=== PATIENT | male | born 1935 | race Hispanic/Latino ===

== ENCOUNTER 2016-10-30 06:43 | Day surgery (SDC) | payer MEDICARE ==
[2016-10-30] MEDS ORDERED: Lidocaine 1% Inj (20ml) ONE (07:19)
[2016-10-30] MEDS ORDERED: Bupivacaine 0.5% Inj(30mL) ONE (07:19)
[2016-10-30 07:24] VITALS: BMI 20.3
[2016-10-30 07:30] LABS: ADD MANUAL DIFF? NO
[2016-10-30 07:42] LABS: BASO # 0.03 K/mm3 (0.0-2.0); BASO % 0.4 % (0.0-3.0); EOS # 0.3 (0.0-0.7); EOS % 4.1 % (1.5-5.0); GRAN # 5.26 (1.4-6.5); GRAN % 64.8 % (50.0-68.0); HEMATOCRIT 41.3 % (42.0-52.0); LYMPH # 1.7 (1.2-3.4); LYMPH % 21.2 % (22.0-35.0); MEAN CELL VOLUME 98.1 fL (80.0-105.0); MEAN CORPUSCULAR HEMOGLOBIN 32.3 pg (25.0-35.0); MEAN CORPUSCULAR HGB CONC 32.9 g/dl (31.0-37.0); MEAN PLATELET VOLUME 9.1 fl (7.0-11.0); MONO # 0.8 (0.1-0.6); MONO % 9.5 % (1.0-6.0); PLATELET COUNT 275 10^3/uL (120.0-450.0); RED CELL DISTRIBUTION WIDTH 13.7 % (11.5-14.5); WHITE BLOOD COUNT 8.1 10^3/ul (4.5-11.0)
[2016-10-30 07:52] LABS: PARTIAL THROMBOPLASTIN TIME 28.7 Seconds (23.7-30.8)
[2016-10-30 08:02] LABS: BLOOD UREA NITROGEN 15 mg/dL (7-21); CALCIUM 9.4 mg/dL (8.4-10.5); CARBON DIOXIDE 30 mmol/L (21-33); CHLORIDE 101 mmol/L (98-107); GFR AFRICAN-AMERICAN > 60; GLUCOSE,RANDOM 109 mg/dL (70-110); POTASSIUM 4.8 mmol/L (3.6-5.0); SODIUM 142 mmol/L (132-148)
[2016-10-30 08:19] VITALS: O2SAT 99
--- NOTE | 2016-10-30 08:53 | PCM.SURG1 ---
Surgeon's Initial Post Op Note - Surgeon's Notes Surgeon: Dr. Sweeney Bank Teller Machine Mechanic: Dr. Deutsch PGY2, Dr. Murcia PGY1 Type of Anesthesia: Local Pre-Operative Diagnosis: Anterior Chest Mass Operative Findings: see operative report Post-Operative Diagnosis: same Operation Performed: Excision of anterior chest mass Specimen/Specimens Removed: Chest mass Estimated Blood Loss: EBL {In ML}: 5 Blood Products Given: N/A Drains Used: No Drains Post-Op Condition: Good Date of Surgery/Procedure: 10/30/16 Time of Surgery/Procedure: 08:53
[2016-10-30 08:59] VITALS: BP 184/58; PULSE 73; RESP 20; TEMP 97.9
--- NOTE | 2016-11-04 13:34 | OP ---
PROCEDURE DATE: 10/30/2016 PREOPERATIVE DIAGNOSIS: Left anterior chest wall skin lesion measuring 8 cm x 5 cm. POSTOPERATIVE DIAGNOSIS: Left anterior chest wall skin lesion measuring 8 cm x 5 cm. PROCEDURES PERFORMED: 1. Wide and deep excision of the left anterior chest wall lesion. 2. Advancement flap closure of the 5 cm x 8 cm wound. SURGEON: Dr. Sweeney MEDICAL PRACTICE ADMINISTRATOR: Dr. Deutsch ANESTHESIA: Local anesthesia. ESTIMATED BLOOD LOSS: Minimal. SPECIMEN: Anterior chest wall mass. The patient is an 80-year-old male with a history of a growth on the anterior chest wall on the left side associated with discomfort and pain and now increasing in size. This appears to represent a ski n cancer and the patient was brought in for excision. The patient was brought to the operating room, placed on the operating table in supine position. The patient was connected to EKG, blood pressure and pulse oximeter monitors. The patient then was anes thetized with local anesthetic and was prepped and draped in usual sterile fashion. First, standard timeout procedure too place and everybody in the room agreed as to the patient's iden tity, diagnosis and procedure to be performed. Using a #15 blade, an incision was made as previously marked wound lines, which were about a cm dista l to the margins of the tumor. This was carefully carried through subcutaneous fat, down to the fasc ia over the pectoralis muscle. Once this was done, I then carefully took the fascial layer together with the overlying skin and the underlying fascia in order to send the whole specimen. Once this was completed, the wound was copiously irrigated, all the bleeding points were cauterized and flaps were raised laterally for about 4-5 cm on each side. Once this was done and we were able to reapproximat e skin without any significant tension, I then proceeded with closure of the wound using 3-0 Vicryl f or the deep fat layer, 3-0 Vicryl for the deep dermal layer and 4-0 Monocryl for skin. A sterile Mickey mabond dressing was applied to the wound. There were also 3 mattress nylon stitches used in order to secure the skin in place. Brandon Sweeney MD cc: [id number] TT: 11/04/2016 13:34:21 en
== END 2016-10-30 09:50 | disposition home or self-care (01) ==
LOC: OPSURG 06:43
PROVIDERS: ATTEND General Practice
DX: C44.519 Basal cell carcinoma of skin of other part of trunk (principal)

== ENCOUNTER 2017-05-27 11:58 | Observation (INO) | payer MEDICARE ==
--- NOTE | 2017-05-27 12:28 | ED PDOC ---
Arrival/HPI - General Chief Complaint: Dizziness/Lightheaded Time Seen by Provider: 05/27/17 12:04 Historian: Patient, Spouse, Family (Son) - History of Present Illness Time/Duration: Prior to Arrival Symptom Onset: Sudden Symptom Course: Improving Severity Level: Moderate Activities at Onset: Rest Associated Symptoms (Text): 05/27/17 12:26 Patient states that he felt dizzy and lightheaded this morning and had a near syncopal episode. No chest pain or palpitations. Chronic dyspnea and no worse than usual. No headache. No nausea or vomiting. No fever. No trauma. He felt better after applying his home oxygen. He is on 3 L. Past Medical History - Infectious Disease Hx of Infectious Diseases: None - Tetanus Immunization Tetanus Immunization: Unknown - Cardiac Hx Pacemaker: No - Pulmonary Hx Chronic Obstructive Pulmonary Disease (COPD): Yes (home o2) Hx Emphysema: Yes - Neurological Hx Seizures: Yes - Hematological/Oncological Hx Blood Transfusions: No - Musculoskeletal/Rheumatological Hx Musculoskeletal Disorders: No - Genitourinary/Gynecological Hx Bladder Cancer: Yes - Psychiatric Hx Emotional Abuse: No Hx Physical Abuse: No Hx Substance Use: No (30+YRS AGO ETOH) - Past Surgical History Past Surgical History: Non-Contributing - Anesthesia Hx Anesthesia Reactions: No Hx Malignant Hyperthermia: No - Suicidal Assessment Feels Threatened In Home Enviroment: No Family/Social History - Physician Review Nursing Documentation Reviewed: Yes Family/Social History: Unknown Family HX Smoking Status: Former Smoker Hx Alcohol Use: No Hx Substance Use: No (30+YRS AGO ETOH) Hx Substance Use Treatment: No Allergies/Home Meds Allergies/Adverse Reactions: Allergies No Known Allergies Allergy (Verified 05/27/17 12:18) Home Medications: Home Meds Medication Instructions Recorded Confirmed Lovastatin 40 mg PO DAILY 10/30/16 05/27/17 Phenytoin, Extended [Dilantin 100 mg PO DAILY 10/30/16 05/27/17 [place]] Review of Systems - Physician Review All systems were reviewed & negative as marked: Yes - Review of Systems Constitutional: Fatigue. absent: Fevers Respiratory: SOB, Cough. absent: Wheezing Cardiovascular: absent: Chest Pain, Palpitations, Syncope Gastrointestinal: absent: Abdominal Pain, Nausea, Vomiting Genitourinary Male: absent: Dysuria, Hematuria Neurological: Dizziness. absent: Headache, Focal Weakness Physical Exam Vital Signs Temp Pulse Resp BP Pulse Ox 05/27/17 12:32 98.7 F 05/27/17 12:13 97.9 F 88 18 155/72 H 95 Temperature: Afebrile Blood Pressure: Hypertensive Pulse: Regular Respiratory Rate: Normal Appearance: Positive for: Well-Appearing, Non-Toxic, Comfortable, Other ( Chronically ill-appearing thin and pale) Pain Distress: None Mental Status: Positive for: Alert and Oriented X 3 - Systems Exam Head: Present: Atraumatic, Normocephalic Pupils: Present: PERRL Extroacular Muscles: Present: EOMI Conjunctiva: Present: Normal Mouth: Present: Moist Mucous Membranes Pharnyx: No: ERYTHEMA, EXUDATE, TONSILS ENLARGED Neck: Present: Normal Range of Motion Respiratory/Chest: Present: Decreased Breath Sounds, Rhonchi. No: Accessory Muscle Use, Wheezes, Rales, Retracting, Tachypneic, Tender to Palpation Cardiovascular: Present: Regular Rate and Rhythm, Normal S1, S2. No: Murmurs Abdomen: Present: Normal Bowel Sounds. No: Tenderness, Distention, Peritoneal Signs, Rebound, Guarding Upper Extremity: Present: Normal Inspection. No: Cyanosis, Edema Lower Extremity: Present: Normal Inspection. No: Edema Neurological: Present: GCS=15, CN II-XII Intact, Speech Normal, Motor Func Grossly Intact, Normal Cerebellar Funct Skin: Present: Warm, Dry, Pale. No: Rashes Psychiatric: Present: Alert, Oriented x 3, Normal Insight, Normal Concentration Medical Decision Making ED Course and Treatment: 05/27/17 12:34 EKG shows normal sinus rhythm rate approximately [address] or T-wave changes 05/27/17 13:43 Chest one view shows no infiltrate effusion or cardiomegaly - Lab Interpretations Lab Results: 05/27/17 12:10 05/27/17 12:10 Lab Results 05/27/17 12:26: POC Glucose (mg/dL) 134 H 05/27/17 12:10: Sodium 139, Potassium 4.2, Chloride 99, Carbon Dioxide 28, Anion Gap 16, BUN 18, Creatinine 0.8, Est GFR ( Amer) > 60, Est GFR (Non- Af Amer) > 60, Random Glucose 128 H, Calcium 9.2, Phosphorus 3.4, Magnesium 2.1 , Total Bilirubin 0.5, AST 29, ALT 29, Alkaline Phosphatase 61, Lactate Dehydrogenase 490, Total Creatine Kinase 97, Troponin I 0.02, Total Protein 7.8 , Albumin 4.3, Globulin 3.5, Albumin/Globulin Ratio 1.2 05/27/17 12:10: PT 12.2, INR 1.11 H, APTT 26.7 05/27/17 12:10: WBC 8.5, RBC 4.17, Hgb 13.3 L, Hct 41.3 L, MCV 99.0, MCH 31.9, MCHC 32.2, RDW 13.3, Plt Count 218, MPV 9.7, Gran % 70.7 H, Lymph % (Auto) 17.4 L, [place] % (Auto) 10.8 H, Eos % (Auto) 0.9 L, Baso % (Auto) 0.2, Gran # 5.98, Lymph # 1.5, [place] # 0.9 H, Eos # 0.1, Baso # 0.02 - RAD Interpretation Radiology Orders: 05/27/17 12:23 HEAD W/O CONTRAST [CT] Stat 05/27/17 12:24 CHEST PORTABLE [RAD] Stat CT scan of the head as read by the radiologist shows no acute findings Collections Associate: Radiologist Disposition/Present on Arrival - Present on Arrival Any Indicators Present on Arrival: No History of DVT/PE: No History of Uncontrolled Diabetes: No Urinary Catheter: No History of Decub. Ulcer: No History Surgical Site Infection Following: None - Disposition Have Diagnosis and Disposition been Completed?: Yes Diagnosis: Near syncope Disposition: HOSPITALIZED Disposition Time: 13:52 Patient Plan: Observation, Telemetry Condition: FAIR Referrals: Jared Landin MD [Primary Care Provider] - Follow up with primary Forms: [employer] (Croatian)
[2017-05-27 12:33] LABS: BASO # 0.02 K/mm3 (0.0-2.0); BASO % 0.2 % (0.0-3.0); EOS # 0.1 (0.0-0.7); EOS % 0.9 % (1.5-5.0); GRAN # 5.98 (1.4-6.5); GRAN % 70.7 % (50.0-68.0); HEMATOCRIT 41.3 % (42.0-52.0); LYMPH # 1.5 (1.2-3.4); LYMPH % 17.4 % (22.0-35.0); MEAN CORPUSCULAR HEMOGLOBIN 31.9 pg (25.0-35.0); MEAN CORPUSCULAR HGB CONC 32.2 g/dl (31.0-37.0); MEAN PLATELET VOLUME 9.7 fl (7.0-11.0); MONO # 0.9 (0.1-0.6); MONO % 10.8 % (1.0-6.0); RED CELL DISTRIBUTION WIDTH 13.3 % (11.5-14.5); WHITE BLOOD COUNT 8.5 10^3/ul (4.5-11.0)
[2017-05-27 12:40] LABS: ALB/GLOB RATIO 1.2 (1.1-1.8); ALKALINE PHOSPHATASE 61 U/L (38-126); ALT/SGPT 29 U/L (7-56); AST/SGOT 29 U/L (17-59); BILIRUBIN,TOTAL 0.5 mg/dL (0.2-1.3); BLOOD UREA NITROGEN 18 mg/dL (7-21); CALCIUM 9.2 mg/dL (8.4-10.5); CARBON DIOXIDE 28 mmol/L (21-33); CHLORIDE 99 mmol/L (98-107); GFR AFRICAN-AMERICAN > 60; GLUCOSE,RANDOM 128 mg/dL (70-110); MAGNESIUM 2.1 mg/dL (1.7-2.2); PHOSPHOROUS 3.4 mg/dL (2.5-4.5); POTASSIUM 4.2 mmol/L (3.6-5.0); SODIUM 139 mmol/L (132-148); TOTAL PROTEIN 7.8 g/dL (5.8-8.3)
[2017-05-27 12:49] LABS: INR 1.11 (0.93-1.08); PARTIAL THROMBOPLASTIN TIME 26.7 Seconds (25.1-36.5)
[2017-05-27 12:51] LABS: TROPONIN I 0.02 ng/mL
--- NOTE | 2017-05-27 13:17 | CT ---
PROCEDURE: CT HEAD WITHOUT CONTRAST. HISTORY: ams COMPARISON: None available. TECHNIQUE: Axial computed tomography images were obtained through the head/brain without intravenous contrast. Please note that the examination is limited by patient motion artifact, despite several attempts at repeat imaging through the posterior fossa. Radiation dose: Total exam DLP = 1307.83 mGy-cm. This CT exam was performed using one or more of the following dose reduction techniques: Automated exposure control, adjustment of the mA and/or kV according to patient size, and/or use of iterative reconstruction technique. FINDINGS: HEMORRHAGE: No intracranial hemorrhage. BRAIN: No mass effect or edema. Mild diffuse age-appropriate cerebral atrophy. 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 No evidence of acute infarct. Moderate periventricular white matter lucency consistent with age-related microvascular ischemic change. VENTRICLES: Unremarkable. No hydrocephalus. CALVARIUM: Unremarkable. PARANASAL SINUSES: Unremarkable as visualized. No significant inflammatory changes. MASTOID AIR CELLS: Unremarkable as visualized. No inflammatory changes. OTHER FINDINGS: None. IMPRESSION: No intracranial mass, hemorrhage or evidence of acute infarct. 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 Age-appropriate atrophy and microvascular white matter ischemic change. Examination limited by patient motion.
--- NOTE | 2017-05-27 13:20 | RAD ---
HISTORY: ams COMPARISON: 04/21/2014 FINDINGS: LUNGS: No active pulmonary disease. PLEURA: No significant pleural effusion identified, no pneumothorax apparent. CARDIOVASCULAR: Normal. OSSEOUS STRUCTURES: Old healed fracture of the right 5th posterior rib. Old healed fractures of the left posterior 6th and 7th ribs. VISUALIZED UPPER ABDOMEN: Normal. OTHER FINDINGS: None. IMPRESSION: No active disease.
[2017-05-27 14:11] LABS: URINE BILIRUBIN NEGATIVE (NEGATIVE); URINE BLOOD TRACE-INTACT (NEGATIVE); URINE GLUCOSE (UA) NEGATIVE (NEGATIVE); URINE KETONE NEGATIVE (NEGATIVE); URINE LEUKOCYTE ESTERASE NEGATIVE Leu/uL (NEGATIVE); URINE PROTEIN TRACE mg/dL (<30 mg/dL); URINE UROBILINOGEN 0.2 E.U./dL (<1 E.U./dL)
[2017-05-27 14:14] LABS: URINE APPEARANCE SL CLOUDY (CLEAR)
[2017-05-27 14:15] LABS: URINE COLOR YELLOW (YELLOW)
[2017-05-27 14:16] LABS: URINE RBC 0 - 2 /hpf (0-2); URINE WBC NEGATIVE /hpf (0-6)
[2017-05-27] MEDS: Albuterol-Ipratrop 3 mg / 0.5 (3 ml) UD IH PRN (15:51)
[2017-05-27 17:27] VITALS: BMI 19.0
[2017-05-27] MEDS ORDERED: Influenza Vaccine 60 mcg/0.5 mL SYR (4YR UP) IM ONE (17:27)
[2017-05-27] MEDS ORDERED: Pneumococcal 23-Valent Vaccine IM ONE (17:27)
--- NOTE | 2017-05-27 19:49 | CARD ---
APPROVED REPORT EKG Measurement Heart [id number] <Conclusion> Normal sinus rhythm Nonspecific ST and T wave abnormality Abnormal ECG
[2017-05-28] MEDS: Albuterol-Ipratrop 3 mg / 0.5 (3 ml) UD IH PRN ×4 (06:22→22:06)
--- NOTE | 2017-05-28 22:25 | US ---
PROCEDURE: Bilateral carotid artery duplex ultrasound HISTORY: Carotid stenosis syncope PHYSICIAN(S): Lance Dougherty MD. TECHNIQUE: Duplex sonography and color-flow Doppler were used to evaluate the carotid bifurcations and limited segments of the vertebral arteries bilaterally. FINDINGS: There is moderate to severe irregular calcified heterogeneous plaque noted at the carotid bifurcations bilaterally. The peak systolic velocity in the proximal right internal carotid artery is 160 cm/sec. This corresponds to a 60-79 percent proximal right ICA stenosis. Normal systolic velocities are noted in the proximal right external carotid artery. There is antegrade flow in the right vertebral artery. The peak systolic velocity in the proximal left internal carotid artery is 143 cm/sec. This corresponds to a 40-59 percent proximal left ICA stenosis. Normal systolic velocities are noted in the proximal left external carotid artery. There is antegrade flow in the left vertebral artery. IMPRESSION: 1. 60-79 percent proximal right ICA stenosis 2. 40- 59 percent proximal left ICA stenosis 3. Antegrade flow in both vertebral arteries.
--- NOTE | 2017-05-29 01:57 | CON ---
DATE: 05/28/2017 REQUESTING PHYSICIAN: Dr. Griffith REASON FOR CONSULTATION: Near syncope. HISTORY OF PRESENT ILLNESS: This is an 81-year-old man with severe COPD, admitted after near syncopal event at home. He states that he got up from a seated position to walk or cross the room and became severely short of breath. He felt extremely lightheaded and faint. He denied any loss of consciousness. He denied any chest pain. He is unaware of any palpitations. He called the emergency squad and sat down to rest. Upon arrival, he was feeling better, but his blood pressure was noted to be markedly elevated. He was advised admission. He had recurrent dyspnea and agreed to be transferred to the hospital. He is currently seen lying in bed on telemetry in the presence of his grandson. He is feeling significantly better. He again denies any chest pain. He is unaware of any palpitations. He has had no prior history of syncope. His past history is notable for the problems mentioned above. He does have severe COPD and uses home oxygen. He had a history of alcohol abuse in the past as well and reportedly has a history of seizures. He also has a history of hyperlipidemia and prior bladder cancer. ALLERGIES: NONE. MEDICATIONS: At home included lovastatin and Dilantin. SOCIAL HISTORY: As mentioned. He is retired. FAMILY HISTORY: Both parents are from age-related illness. REVIEW OF SYSTEMS: 10-point review of systems is notable mainly for problems as mentioned above.. PHYSICAL EXAMINATION GENERAL: He is a elderly man who appears comfortable at rest. VITAL SIGNS: His blood pressure is 120/50 with a pulse of 72 and sinus, respirations 16. He is afebrile. HEENT: Normocephalic, atraumatic. NECK: Supple. No JVD noted. CHEST: Bilateral scattered rhonchi. Diminished breath sounds noted bilaterally. HEART: PMI displaced laterally. Distant sounds noted. No pathologic murmurs or gallops were appreciable. ABDOMEN: Soft, nontender with normoactive bowel sounds. EXTREMITIES: No clubbing, cyanosis or edema. SKIN: Warm and dry. PSYCHIATRIC: Normal mood and affect. NEUROLOGIC: No gross motor or sensory is appreciable. Alert and oriented x3. DIAGNOSTIC DATA: White count is 8.5, hemoglobin and hematocrit 13.3 and 41.3 with platelet count of 218,000. PT/PTT normal. Potassium 4.2, BUN and creatinine 18 and 0.8, glucose is 134. Troponin is negative. CK is negative as well. Electrocardiogram reveals sinus rhythm with nonspecific ST-T abnormalities. Chest x-ray revealed an old prior rib fractures. Cardiac silhouette is normal with clear lung sauer. CT of the head showed evidence of old left frontal parietal infarct and age-related atrophy. IMPRESSION: 1. Near syncope in the setting of respiratory distress and accelerated hypertension, etiology uncertain, may represent vasovagal event. Obviously given his age, significant carotid or coronary disease can be present and conduction abnormalities also need to be entertained. 2. Severe chronic obstructive pulmonary disease. 3. Rest of problems as noted. RECOMMENDATIONS: Telemetry monitoring; should continue for at least another 24 hours. An echocardiogram has been ordered. His blood pressure will continue to be monitored. If carotid ultrasound was performed and is pending, if all the above is unremarkable, discharge home with outpatient follow up would be advised. Thank you for this consultation. I will be happy to follow along as needed. Daniel Teague MD
--- NOTE | 2017-05-29 01:57 | HP ---
HISTORY OF PRESENT ILLNESS: The patient is an 81-year-old, seen and examined while he was in Echocardiogram Department. The patient states yesterday morning, he just had a cup of coffee and later on, he had induced when he woke up. He went to the bathroom, he felt very dizzy, had cold sweat, as if he is going to pass out, so he called ambulance and he was brought to the emergency room. He denies any nausea or vomiting. No fever, no chills. No history of rectal bleeding. No hemoptysis. No hematemesis He also complained of feeling weak. No chest pain. No shortness of breath. PAST MEDICAL HISTORY: Significant for: 1. Hyperlipidemia. 2. COPD. 3. Seizure disorder. 4. History of right knee surgery. ALLERGIES: HE IS NOT ALLERGIC TO ANY MEDICATION. MEDICATION AT HOME: He is on phenytoin 100 mg daily and lovastatin 40 mg daily. SOCIAL HISTORY: He lives with his ; history of smoking in the remote past; he smoked almost a pack for more than 10 years and quit almost 20 years ago. REVIEW OF SYSTEMS: He just complained of feeling , otherwise feels fine. PHYSICAL EXAMINATION: VITAL SIGNS: He is afebrile, pulse 72, respirations 18 and blood pressure 121/43. LUNGS: Bilateral fair airflow. No rhonchi or crackle. HEART: S1 and S2 audible. ABDOMEN: Soft, nontender. No rebound. No guarding. NEUROLOGICAL: He is awake, alert, oriented and communicative. LABORATORY EXAM: WBC is 8.5, hemoglobin 13, hematocrit 41, and platelets 218. PT 12.2, INR 1.11. Chemistry: Sodium 139, potassium 4.2, chloride 99, CO2 of 28, BUN 18, creatinine 0.8 and blood sugar of 128. Urine shows trace blood. Phenytoin level is 4. He has carotid Doppler that is pending. CT scan of the head is unremarkable. X-ray of the chest is negative. ASSESSMENT: 1. Near syncope, probably postural hypertension. 2. History of seizure disorder. 3. Hyperlipidemia. PLAN: I will increase his phenytoin to 100 b.i.d. I will order for orthostatic vitals. Physical Therapy evaluation and treatment has been requested. Once all the tests are available, we will make discharge planning. Bernardo Maldonado MD [facility] # [id number]
[2017-05-29 06:24] VITALS: O2SAT 91
--- NOTE | 2017-05-29 09:27 | CP.PCM.PN ---
Subjective - Date & Time of Evaluation Date of Evaluation: 05/29/17 Time of Evaluation: 07:00 - Subjective Subjective: Stable on 2R. No CP or SOB. Not dizzy. V/S noted. RSR. No postural changes. PE: Lungs: rhonchi Cor.: S1S2 Abd.: soft Ext.: no edema Neuro.; alert I/O= 1090/670 Labs noted Echo: prelim: Nl LV fx. Car. U/S noted. CT head noted Objective - Vital Signs/Intake and Output Vital Signs (last 24 hours): Temp Pulse Resp BP Pulse Ox 98.3 F 100 H 19 117/57 L 91 L 05/29/17 06:00 05/29/17 06:00 05/29/17 06:00 05/29/17 06:00 05/29/17 06:00 Intake and Output: 05/29/17 05/29/17 06:59 18:59 Intake Total 480 Output Total 100 Balance 380 - Medications Medications: Current Medications Albuterol/Ipratropium (Duoneb 3 Mg/0.5 Mg (3 Ml) Ud) 3 ml IH [id number] PRN PRN Reason: Shortness of Breath Last Admin: 05/28/17 22:06 Dose: 3 ml Aspirin (Ecotrin) 81 mg PO DAILY [facility] Last Admin: 05/29/17 09:08 Dose: 81 mg Phenytoin Sodium (Dilantin) 100 mg PO BID [facility] Last Admin: 05/29/17 09:08 Dose: 100 mg - Labs Labs: PT 12.2 SECONDS (9.4-12.5) 05/27/17 12:10 INR 1.11 (0.93-1.08) H 05/27/17 12:10 APTT 26.7 Seconds (25.1-36.5) 05/27/17 12:10 Assessment and Plan - Assessment and Plan (Free Text) Assessment: Near Syncope in setting of respiratory distress Severe COPD with home O2 Seizure disorder on dilantin Former ETOH and Smoker HLD Bladder cancer CVD with 60 - 79% OSITO stenosis and 40-59% LICA stenosis Old stroke seen on CT Plan: As per neuro and Dr. Griffith ASA OOB ad rena Will read echo No further cardiac testing unless recurrent near syncope/syncope. Rx for COPD Out-pt F/U.
--- NOTE | 2017-05-29 10:34 | CARD ---
APPROVED REPORT EXAM: Two-dimensional and M-mode echocardiogram with Doppler and color Doppler. Other Information Quality : PoorRhythm : INDICATION Syncope COPD 2D DIMENSIONS Left Atrium (2D)3.7 (1.6-4.0cm)IVSd1.1 (0.7-1.1cm) LVDd4.2 (3.9-5.9cm)PWd1.2 (0.7-1.1cm) LVDs2.6 (2.5-4.0cm)FS (%) 38.9 % LVEF (%)69.0 (>50%) Mitral Valve MV E Ayyzmdmn77.1cm/sMV A Gaznhaeu75.0cm/sE/A ratio0.6 TDI E/Lateral E'0.0E/Medial E'0.0 Tricuspid Valve TR Peak [id number]/sRAP [id number] Peak Gr.18mmHg [id number] LEFT VENTRICLE The left ventricle is normal size. There is normal left ventricular wall thickness. The left ventricular function is normal. The left ventricular ejection fraction is within the normal range. There is normal LV segmental wall motion. RIGHT VENTRICLE The right ventricle is normal size. ATRIA The left atrium size is normal. The right atrium size is normal. The interatrial septum is intact with no evidence for an atrial septal defect. AORTIC VALVE The aortic valve is not well visualized. MITRAL VALVE The mitral valve is normal in structure. TRICUSPID VALVE The tricuspid valve is not well visualized. There is mild tricuspid regurgitation. PULMONIC VALVE The pulmonic valve is not well visualized. PERICARDIAL EFFUSION There is no pericardial effusion. <Conclusion> Limited Study. The left ventricle is normal size. There is normal left ventricular wall thickness. The left ventricular function is normal. The left ventricular ejection fraction is within the normal range.
[2017-05-29 12:09] VITALS: BP 114/60; PULSE 104; RESP 20; TEMP 97.2
--- NOTE | 2017-05-31 04:11 | DS ---
This is a late discharge summary for 05/29/2017. I had technical issues with my computer, with my login and did not able to dictate. HISTORY OF PRESENT ILLNESS: The patient is an 81-year-old male who is coming into the hospital because of near syncopal episode. The patient has been unsteady on his feet. He has a history of COPD and he is on home O2. The patient is currently comfortable. He has no complaints of any chest pain. No shortness of breath. The patient had an echo and carotid artery ultrasound done. The patient did have a 60% to 79% proximal right ICA stenosis. I did speak to the patient's granddaughter to given her an update. The patient is going to follow up as an outpatient with Dr. Lance Dougherty and the number was given to him. I also advised the patient to go to Transitional Care or Subacute Rehab, but he refuses. I also spoke to the granddaughter regarding this and the patient is not agreeable. I offered visiting nursing and home physical therapy as well. The patient is going to be discharged home and followup as an outpatient. PHYSICAL EXAMINATION: VITAL SIGNS: Temperature is 97.2, pulse of 104, blood pressure 114/60, respirations 20, and O2 saturation 91%. GENERAL: The patient is lying in bed, flat, comfortable. HEENT: No oral lesion. Anicteric sclerae. Moist mucosa. NECK: No JVD, adenopathy, or thyromegaly. CARDIOVASCULAR: S1 and S2, regular. No murmurs, rubs, or gallops. LUNGS: Clear to auscultation bilaterally. No wheeze, rales, or rhonchi. ABDOMEN: Bowel sounds are positive, soft, nontender and nondistended. EXTREMITIES: No cyanosis, clubbing or edema. ASSESSMENT: 1. Fall. 2. Syncope. 3. Chronic obstructive pulmonary disease, on home O2. 4. Dyslipidemia. 5. History of bladder cancer. 6. Right internal carotid stenosis 60% to 79%. 7. Seizure disorder. PLAN: The patient is currently comfortable. The patient is going to continue with Dilantin, he has been taking 100 mg daily. The patient was seen by Neurology and Cardiology. He was given the flu shot, Pneumovax. He was discharged home to follow up as an outpatient with Dr. Landin. CONDITION: Stable. ACTIVITIES: Increase as tolerated. Nick Griffith MD
== END 2017-05-29 17:12 | disposition home or self-care (01) ==
LOC: ED 11:58 → ERH 13:48 → 2RSO 15:16
PROVIDERS: ADMIT Internal Medicine Nephrology; ATTEND Internal Medicine Nephrology
DX: R55 Syncope and collapse (principal); R06.03 Acute respiratory distress; I10 Essential (primary) hypertension; G40.909 Epilepsy, unspecified, not intractable, without status epilepticus; I65.23 Occlusion and stenosis of bilateral carotid arteries; J44.9 Chronic obstructive pulmonary disease, unspecified; E78.5 Hyperlipidemia, unspecified; Z99.81 Dependence on supplemental oxygen; Z86.73 Personal history of transient ischemic attack (TIA), and cerebral infarction without residual deficits; Z85.51 Personal history of malignant neoplasm of bladder; Z87.891 Personal history of nicotine dependence
CPT/HCPCS: 36415; 70450; 71010; 80053; 80185; 81001; 82465; 82550; 82948; 83615; 83735; 84100; 84484; 85025; 85610; 85730; 93005; 93306; 93880; 94640; 97116; 97162; 99285; G0378; G8978; G8979